=== PATIENT | female | born 1990 | race American Indian/Alaskan Native ===

== ENCOUNTER 2016-10-20 20:57 | Outpatient (CLI) | payer MEDICAID ==
[2016-10-20] MEDS ORDERED: LACTATED RINGERS 500 ML IV ONE (22:10)
[2016-10-20 23:02] VITALS: BP 127/79
== END 2016-10-20 23:15 | disposition home or self-care (01) ==
LOC: TRG 20:57
PROVIDERS: ATTEND Obstetrics & Gynecology Gynecology
DX: O47.03 False labor before 37 completed weeks of gestation, third trimester (principal); Z3A.34 34 weeks gestation of pregnancy
CPT/HCPCS: 59025; J7120